=== PATIENT | female | born 1995 | race Caucasian/White ===

== ENCOUNTER 2024-03-19 11:21 | Emergency (ER) | payer OTHER, SELFPAY ==
[2024-03-19 11:25] VITALS: BP 153/78; PULSE 80; RESP 18; TEMP 36.5; O2SAT 100
--- NOTE | 2024-03-19 11:49 | ED_ITS ---
HPI - General Chief complaint: OB/Uterine Contractions Stated complaint: cramping with Source: patient Mode of arrival: ambulatory Limitations: no limitations History of Present Illness HPI Narrative: patient is a 28-year-old female with roughly 5 weeks gestational age of current . She is here with complaints of some small cramping from time to time. No vaginal bleeding. No severe pain. She has tried for many years to get and currently has a and is very anxious about the . She was hoping an ultrasound for reassurance today. We discussed and came to a conclusion that blood work and a urine would be appropriate. MD Complaint: other ( Abdominal cramping) Onset (ago): day(s) (2) Pain Consistency: intermittent Location: pelvis and abdomen Severity: mild Severity scale (1-10): 2 Quality: Cramping Radiation: pelvis and abdomen Relieving factors: none Exacerbating factors: none Associated symptoms: denies other symptoms Vaginal discharge: none Vaginal bleeding: none Patient : Yes OB History - Current : no complications OB History - Previous Pregnancies: no complications care: none ( pending 1st appointment next week OBGYN) Related Data Allergies Allergy/AdvReac Type Severity Reaction Status Date / Time No Known Allergies Allergy Unverified 03/19/24 11:42 Review of Systems 2 Review of Systems: All systems reviewed & are unremarkable except as noted in HPI and below Constitutional: Constitutional: Reports no additional constitutional complaints Eyes: Eyes: Reports no additional eye complaints ENT: Reports system reviewed and no additional complaints, except as documented Cardiovascular: Cardiovascular: Reports no additional cardiovascular complaints Respiratory: Respiratory: Reports no additional respiratory complaints Gastrointestinal: Gastrointestinal: Reports no additional gastrointestinal complaints Genitourinary: Genitourinary: Reports no additional female genitourinary complaints Musculoskeletal: Musculoskeletal: Reports no additional musculoskeletal complaints Integumentary/Breasts: Skin/Breast: Reports system reviewed and no additional complaints, except as docu Neurologic: Reports system reviewed and no additional complaints, except as documented Psychiatric: Psychiatric: Reports no additional psychiatric complaints Endocrine: Endocrine: Reports no additional endocrine complaints Hematologic/Lymphatic: Hematologic/Lymphatic: Reports no additional hematologic/lymphatic complaints Allergic/Immunologic: Allergic/Immunologic: Reports no additional allergic/immunologic complaints Exam 2 Const: General: healthy appearing Nutritional Appearance: well nourished Orientation/consciousness: patient oriented x3 Limitations: no limitations HENMT: Head: normal to inspection Ears: external ears normal F palomo/Nose/Sinus: Normal external nose present Eyes: Conjunctivae: conjunctivae normal Pupils: Equal, round and reactive pupils present EOM: EOMs intact bilaterally Neck: Neck: normal visual inspection Chest: Chest palpation & inspection: normal inspection of the chest Resp: Effort & Inspection: normal respiratory effort and not labored A uscultation: clear to auscultation bilaterally and no crackles Cardio: Rate: regular rate Rhythm: regular rhythm Heart sounds: no murmurs GI: Inspection: non-distended Auscultation: normal bowel sounds : General: Yes bladder normal to palpation Back/Spine/Pelvis: Back: no CVA tenderness Skin: General skin exam: normal color Rashes: no rashes Wounds: no wounds Neuro: General: patient oriented x3 Cranial nerves: Yes Nystagmus not present Speech: normal speech Gait exam (Neuro): Normal gait present Extrem: General: normal to inspection Psych: Mental Status: mental status grossly normal Affect: normal affect Attitude: cooperative Course Vital Signs Vital signs: Vital Signs Temperature 36.5 C 03/19/24 11:25 Pulse Rate 80 03/19/24 11:25 Respiratory Rate 18 03/19/24 11:25 Blood Pressure 153/78 H 03/19/24 11:25 Pulse Oximetry 100 03/19/24 11:25 Oxygen Delivery Room Air 03/19/24 11:25 Temperature 36.5 C 03/19/24 11:25 Pulse Rate 80 03/19/24 11:25 Respiratory Rate 18 03/19/24 11:25 Blood Pressure 153/78 H 03/19/24 11:25 Pulse Oximetry 100 03/19/24 11:25 Oxygen Delivery Room Air 03/19/24 11:25 MDM - OB/Uterine Contractions MDM Narrative Medical decision making narrative: patient is a 28-year-old female with desire to get ultrasound for reassurance but also has some cramping during 1st trimester. We will go ahead and do labs and a urinalysis. We will add an ultrasound if needed. At this time there is no indication for ultrasound. Lab Data Attestation: I reviewed the patient's lab results. 03/19/24 11:52 03/19/24 11:52 Labs: Lab Results 03/19/24 03/19/24 Range/Units 11:52 12:07 WBC 9.0 (4.8-10.8) K/mm3 RBC 4.76 (4.20-5.40) M/mm3 Hgb 13.5 (12.0-15.0) g/dL Hct 40.3 (35.0-49.0) % MCV 84.7 (78.0-102.0) fL MCH 28.4 (27.0-31.0) pg MCHC 33.5 (32-36) g/dL RDW 12.9 (11.6-14.4) % Plt Count 240 (150-420) K/mm3 MPV 12.8 H (9.2-11.8) fl Immature Gran % (Auto) 0.3 H (0.0-0.0) % Neut % (Auto) 68.6 (50.0-70.0) % Lymph % (Auto) 24.4 (18.0-42.0) % [place] % (Auto) 4.7 (2.0-11.0) % Eos % (Auto) 1.4 (1.0-6.0) % Baso % (Auto) 0.6 (0.0-1.0) % Lymph # (Auto) 2.20 (1.10-4.50) K/mm3 [place] # (Auto) 0.42 (0.10-0.90) K/mm3 Eos # (Auto) 0.13 (0.02-0.50) K/mm3 Baso # (Auto) 0.05 (0.00-0.10) K/mm3 Abs Immat Gran (auto) 0.03 H (0.00-0.00) K/mm3 Absolute Neuts (auto) 6.18 (1.70-7.20) K/mm3 Absolute Nucleated RBC 0.00 (0.00-0.00) K/mm3 Nucleated RBC % 0.0 (0-0.0) % Sodium 136 (136-145) mmol/L Potassium 4.1 (3.5-5.1) mmol/L Chloride 103 (98-108) mmol/L Carbon Dioxide 25 (21-32) mmol/L Anion Gap 8 (4-12) mmol/L BUN 8 (7-18) mg/dL Creatinine 0.68 (0.55-1.02) mg/dL Estim Creat Clear Calc 136 ml/min Estimated GFR > 60 (59 - ) Glucose 94 (70-99) mg/dL Calculated Osmolality 280 L (285-295) mOsm/kg Calcium 8.5 (8.5-10.1) mg/dL Total Bilirubin 0.7 (0.00-1.00) mg/dL AST 13 L (15-37) U/L ALT 25 (14-59) U/L Alkaline Phosphatase 88 (46-116) U/L Total Protein 7.0 (6.4-8.2) g/dL Albumin 3.5 (3.4-5.0) g/dL Beta HCG, Quant 8492.00 H (0-6) mIU/mL Urine Color Light yellow (Yellow) Urine Appearance Clear (Clear) Urine pH 6.0 (5.0-8.0) Ur Specific [place] 1.020 (1.010-1.020) Urine Protein Negative (Negative) Urine Glucose (UA) Negative (Negative) Urine Ketones Negative (Negative) Ur Blood (Man) Negative (Negative) Urine Nitrate Negative (Negative) Urine Bilirubin Negative (Negative) Urine Urobilinogen 0.2 (0.2-1.0) mg/dL Leukocyte Esterase Rfl 1+ H (Negative) JOYCELYN/UL Urine RBC None seen (0-2) /hpf Urine WBC 4-6 H (0-3) /hpf Ur Squamous Epith Cells Few (Few) /hpf Urine Bacteria 1+ H (None) /hpf Discharge Plan Discharge Clinical Impression: First trimester Urinary tract infection during Qualifiers: Trimester: first trimester Qualified Code(s): O23.41 - Unspecified infection of urinary tract in , first trimester Patient Disposition: Home, Self-Care Condition: Stable Instructions: at 7 to 10 Weeks (ED) Additional Instructions: Please follow-up with the OBGYN as planned in the next week. Come back to the ER with any severe pains of the abdomen or vaginal bleeding. Monitor your blood pressure to make sure it is not elevating. The pressure had come down after you are situated in the hospital emergency room. Discussed swelling with the OBGYN. Patient Language: Georgian Prescriptions: New cephalexin 500 mg capsule 500 mg PO BID 7 Days Qty: 14 0RF Follow-up/Referrals: UNKNOWN,DOCTOR [Non-Staff] - Time of Disposition: 12:48
[2024-03-19 11:57] LABS: Basophils Absolute Auto 0.05 K/mm3 (0.00-0.10); Basophils Percent Auto 0.6 % (0.0-1.0); Eosinophils Absolute Auto 0.13 K/mm3 (0.02-0.50); Eosinophils Percent Auto 1.4 % (1.0-6.0); Hematocrit 40.3 % (35.0-49.0); Hemoglobin 13.5 g/dL (12.0-15.0); Immature Granulocyte Absolute 0.03 K/mm3 (0.00-0.00); Immature Granulocyte Percent A 0.3 % (0.0-0.0); Lymphocytes Percent Auto 24.4 % (18.0-42.0); Mean Corpuscular HGB Conc 33.5 g/dL (32-36); Mean Corpuscular Hemoglobin 28.4 pg (27.0-31.0); Mean Corpuscular Volume 84.7 fL (78.0-102.0); Mean Platelet Volume 12.8 fl (9.2-11.8); Monocytes Absolute Auto 0.42 K/mm3 (0.10-0.90); Monocytes Percent Auto 4.7 % (2.0-11.0); Neutrophils Absolute Auto 6.18 K/mm3 (1.70-7.20); Neutrophils Percent Auto 68.6 % (50.0-70.0); Platelet Count Result 240 K/mm3 (150-420); Red Blood Count 4.76 M/mm3 (4.20-5.40); Red Cell Distribution Width 12.9 % (11.6-14.4)
[2024-03-19 12:11] LABS: Add Urine Microscopic? YES; Appearance Urine Clear (Clear); Bilirubin Urine Negative (Negative); Blood Urine Negative (Negative); Color Urine Light Yellow (Yellow); Glucose Urine UA Negative (Negative); Ketones Urine Negative (Negative); Leukocyte Esterase Ur 1+ LEU/UL (Negative); Nitrate Urine Negative (Negative); Protein Urine Negative (Negative); Urobilinogen Urine 0.2 mg/dL (0.2-1.0)
[2024-03-19 12:17] LABS: Bacteria Urine 1+ /hpf; RBC Urine None seen /hpf (0-2); Squamous Epithelial Cell Urine Few /hpf (Few)
[2024-03-19 12:18] LABS: Anion Gap 8 mmol/L (4-12); Estimated CRCL calculation 136 ml/min; Estimated Glomerular Filt Rate > 60
[2024-03-19 12:32] LABS: Alanine Aminotransferase 25 U/L (14-59); Albumin Level 3.5 g/dL (3.4-5.0); Alkaline Phosphatase 88 U/L (46-116); Bilirubin,Total 0.7 mg/dL (0.00-1.00); Blood Urea Nitrogen 8 mg/dL (7-18); Calcium 8.5 mg/dL (8.5-10.1); Carbon Dioxide 25 mmol/L (21-32); Chloride 103 mmol/L (98-108); Glucose 94 mg/dL (70-99); Potassium 4.1 mmol/L (3.5-5.1); Sodium 136 mmol/L (136-145)
[2024-03-19 12:33] LABS: Aspartate Amino Transferase 13 U/L (15-37); Osmolality Calculated 280 mOsm/kg (285-295)
[2024-03-19 12:53] VITALS: BP 134/63; PULSE 74; RESP 20; TEMP 36.6; O2SAT 100
--- NOTE | 2024-03-21 12:35 | PC.NURSE ---
FINAL URINE CULTURE REPORT; MIXED GENITAL JOSE ISOLATED, NO GROWTH, NO FURTHER ACTION OR CHANGE IN TREATMENT NEEDED PER DR. WISDOM.
== END 2024-03-19 12:56 | disposition home or self-care (01) ==
LOC: CHSED 11:53
PROVIDERS: Emergency Provider Emergency Medicine; PCP Family Medicine
DX: O23.41 Unspecified infection of urinary tract in pregnancy, first trimester (principal); N39.0 Urinary tract infection, site not specified; Z3A.01 Less than 8 weeks gestation of pregnancy
CPT/HCPCS: 36415; 80053; 81001; 84702; 85025; 87086; 99283